=== PATIENT | male | born 1960 | race Caucasian/White ===

== ENCOUNTER 2018-11-23 14:32 | Emergency (ER) | payer OTHER ==
[~2018-11-23] VITALS: Ht 172.7 cm; Wt 64.4 kg
[2018-11-23 14:52] VITALS: BP 92/64
--- NOTE | 2018-11-23 15:00 | NUR ---
PT W/C TO BED 9
--- NOTE | 2018-11-23 15:05 | NUR ---
58Y/M BIB SELF WITH C/O ABSCESS. -ABSCESS, - REDNESS, - SWELLING, PT WAS REFERRED FROM DR ORDONEZ FOR PERIRECTAL ABSCESS. BLIND BOTH EYES. PT IS AAOX4, VSS, BED DOWN, BEDRAIL UP X 2, ER MD AWARE AND NOTIFIED OF PT STATUS.
--- NOTE | 2018-11-23 16:00 | NUR ---
Patient being evaluated by physician at bedside.
--- NOTE | 2018-11-23 17:30 | NUR ---
AT PT BEDSIDE FOR EVALUATION
--- NOTE | 2018-11-23 17:49 | NUR ---
CALLED PT FACILITY FOR TRANSPORT
--- NOTE | 2018-11-23 17:49 | NUR ---
TRANSPORT WILL CALL BACK WITH MORE INFORMATION ON TRANSFERING PATIENT TO FACILTY
--- NOTE | 2018-11-23 19:03 | NUR ---
RECEIEVED REPORT FROM DAY SHIFT NURSE LEX RN AT THIS TIME FOR CONTINUITY OF CARE.
--- NOTE | 2018-11-23 19:05 | NUR ---
FIRST CONTACT WITH PT. PT RESTING IN BED, IN COMFORTABLY POSITION. PT AAOX4, GCS 15. PT CAME HERE FOR ABCESS EVALUATION. PT HAS NO ABCESS UPON ASSESMENT. PT WAITING FOR TRANSPORT AT THIS TIME. RR EVEN/UNLABORED. NAD NOTED.
--- NOTE | 2018-11-23 20:14 | NUR ---
pt resting in bed in relaxed position. NAD noted. rr even/unlabored. pt awaiting transport at this time.
--- NOTE | 2018-11-23 20:19 | NUR ---
eta for [facility] 10pm per [facility]
--- NOTE | 2018-11-23 22:44 | NUR ---
[facility] ARRIVED FOR PT
--- NOTE | 2018-11-23 22:51 | NUR ---
[facility] here at this time to transport pt to facility.
--- NOTE | 2018-11-23 22:52 | NUR ---
Patient discharged with v/s stable. Written and verbal after care instructions given and explained. Patient verbalized understanding. Ambulance Transport with to care home. All questions addressed prior to discharge. Advised to follow up with PMD.
[2018-11-23 22:53] VITALS: BP 118/75
--- NOTE | 2018-11-23 22:55 | NUR ---
report given to maddy at pts facility for return.
== END 2018-11-23 22:52 | disposition home or self-care (01) ==
LOC: MED 14:32
DX: Z00.00 Encounter for general adult medical examination without abnormal findings (principal); E11.9 Type 2 diabetes mellitus without complications; H54.8 Legal blindness, as defined in USA
CPT/HCPCS: 81002; 99283